=== PATIENT | male | born 1945 | race Caucasian/White ===

== ENCOUNTER 2025-08-10 10:00 | Outpatient (CLI) | payer OTHER ==
--- NOTE | 2025-08-10 18:30 | CARDIOLOGY REPORT ---
APPROVED REPORT EXAM: Comprehensive 2D, Doppler, and color-flow Echocardiogram. Patient Location: OUT-PATIENT Blood Pressure: 134 / 57 mmHg Heart Rate: 65 bpm Rhythm: PACED Indications ISCHEMIC HEART DISEASE Nerve Specialist: JASMIN / CHAY Previous echo: NONE AVAILABLE 2D Dimensions RVDd 3.7 cm LA Diam 4.3 cm LVOT Diameter 2.18 (1.8-2.4cm) M-Mode Dimensions Left Atrium(MM) 4.31 (2.5-4.0cm) IVSd 0.82 (0.7-1.1cm) LVDd 4.05 (4.0-5.6cm) Aortic Root 3.34 (2.2-3.7cm) PWd 0.94 (0.7-1.1cm) IVSs 1.22 cm MV EPSS 0.5 (<0.5cm) LVDs 2.34 (2.0-3.8cm) FS (%) 42 % PWs 1.43 cm ESV(Teich) 19.0 ml LVEF(%) 74 (>50%) Aortic Valve AoV Peak Anirudh. 176.7 cm/s AoV VTI 35.3 cm AO Peak GR. 12.1 mmHg AO Mean GR. 6 mmHg LVOT VTI 21.82 cm LVOT Peak Anirudh. 96.7 cm/s WILLOW (VTI) 2.31 cm2 Mitral Valve MV E Velocity 63.5 cm/s MV DECEL TIME 233 ms MV A Velocity 130.3 cm/s MV PHT 82 ms E/A Ratio 0.5 MVA (PHT) 2.68 cm2 TDI E/Medial E' 13.0 Tricuspid Valve TR P. Velocity 241 cm/s RAP ESTIMATE 10 mmHg TR Peak Gr. 23 mmHg RVSP 33 mmHg Pulmonary Vein S2 Velocity 67.73 cm/s PVa Duration 126 msec LEFT VENTRICLE Normal LV size and function. Mild concentric hypertrophy. LVEF is 65-70%. RIGHT VENTRICLE RV is normal size and function. Elevated right heart pressures with an RVSP of 33 mmHg. ATRIA Left atrium is moderately dilated. AORTIC VALVE Trileaflet AV appears mildly sclerotic without stenosis. Trace insufficiency. MITRAL VALVE Mild MV annular calcification without stenosis. Trivial regurgitation. TRICUSPID VALVE TV appears structurally normal with trace regurgitation. PULMONIC VALVE Normal PV without stenosis, physiologic insufficiency. GREAT VESSELS Aortic root is normal in size. Ascending aorta is normal in size. PERICARDIUM Normal pericardium. No effusion. Other Information Study Quality: Adequate Conclusion Normal LV size and function. Mild concentric hypertrophy. LVEF is 65-70%. RV is normal size and function. Elevated right heart pressures with an RVSP of 33 mmHg. Left atrium is moderately dilated. Trileaflet AV appears mildly sclerotic without stenosis. Trace insufficiency. Mild MV annular calcification without stenosis. Trivial regurgitation. TV appears structurally normal with trace regurgitation. Normal pericardium. No effusion.
== END 2025-08-10 23:59 | disposition home or self-care (01) ==
LOC: RAD 10:00
PROVIDERS: ATTEND Chiropractor
DX: I11.9 Hypertensive heart disease without heart failure (principal); I08.8 Other rheumatic multiple valve diseases; I25.89 Other forms of chronic ischemic heart disease
CPT/HCPCS: 93306